=== PATIENT | female | born 1985 | race Caucasian/White ===

== ENCOUNTER 2017-06-22 11:43 | Emergency (ER) | payer BC ==
[2017-06-22] MEDS ORDERED: CLINDAMYCIN PHOSPHATE 150 MG/ML VIAL IM ONE (12:18)
--- NOTE | 2017-06-22 12:21 | ERNOTE ---
Integumentary HPI - Narrative Date of Service: 06/22/17 - General Presenting Symptoms: abscess Time Seen by Provider: 06/22/17 11:59 Source: patient Exam Limitations: no limitations - Immun/Allergies/Home Medications Immunizations: IMMUNIZATION HX Immunizations Up to Date Yes History of Influenza Vaccine Yes Hx Pneumococcal Vaccination No Allergies/Adverse Reactions: Allergies Allergy/AdvReac Type Severity Reaction Status Date / Time Cholinesterase Allergy Verified 06/22/17 11:57 Inhibitor(Carbamate) magnesium [Magnesium] Allergy Verified 06/22/17 11:57 procaine HCl [From Novocain] Allergy Verified 06/22/17 11:57 sulfamethoxazole Allergy Verified 06/22/17 11:57 [From Bactrim] trimethoprim [From Bactrim] Allergy Verified 06/22/17 11:57 Home Medications: HOME MEDICATIONS Clindamycin HCl [Cleocin HCl] 300 mg PO Q6H #40 capsule 06/22/17 [Last Taken Unknown] - History of Present Illness Narrative: Pt. comes in with abscess to her post L ear and to her anterior R knee for two days. Pt. denies any fevers, SOB, CP, NVD, but does state that there was bloody drainage from the abscess behind her L ear. 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 Pt. denies any prehospital treatment, alleviating, or aggravating factors. Review of Systems - Review of Systems Constitutional: Present: no symptoms reported. Absent: recent illness, fever, chills, weakness, fatigue EYE: Present: no symptoms reported ENT: Present: no symptoms reported Respiratory: Present: no symptoms reported. Absent: shortness of breath, cough , wheezing Cardiology: Present: no symptoms reported. Absent: chest pain, palpitations, edema Genitourinary: Present: no symptoms reported Musculoskeletal: Present: no symptoms reported. Absent: back pain, joint pain Skin: Present: See HPI, lesions Neurological: Present: no symptoms reported. Absent: headache, dizziness/light- headedness, numbness, tingling All Other Systems: All systems neg except as marked - Patient's Past Medical History Patient History - Medical: No pertinent hx Patient History - Cardiac/Respiratory: No pertinent hx Patient History - Cancer: No Hx of Cancer Patient History - Surgical Procedures: Cholecystectomy Patient History - Other: None LMP (females 10-50): unknown - Social History Living Situations: home Abuse History: No History of abuse Psych History: No pertinent hx Smoking Status: Never smoker Alcohol Use: none Drug Use: none - Immunizations Immunizations Up to Date: Yes Hx Pneumococcal Vaccination: No History of Influenza Vaccine: Yes Physical Exam - Physical Exam General Appearance: Present: wd/wn, alert, no apparent distress Head Exam: Present: no evidence of injury, other - 1cm fluid filled lesion anterior scalp posterior to ear Eye Exam: Normal inspection: bilateral, PERRL: bilateral, EOMI: bilateral Respiratory: Present: no respiratory distress, normal breath sounds, no accessory muscle use, chest nontender, lungs clear Cardiovascular/Chest: Present: regular rate, rhythm, no murmur, normal peripheral pulses Back Exam: Present: normal inspection Extremity Exam: Present: normal range of motion, no edema, other - edema and erythema R prox lower leg 3cm in diameter without fluctuant fluid Neurological Exam: Present: alert, oriented, normal mood/affect, no motor/ sensory deficits Skin Exam: Present: normal color, warm/dry. Absent: pallor, skin rash ED Progress - Vital Signs Patient's Vital Signs:: I have reviewed the patient's vital signs. Vital Signs: Vital Signs 06/22/17 11:53 Temperature 36.9 C Pulse Rate 90 Respiratory 16 Rate Blood Pressure 136/87 O2 Sat by Pulse 100 Oximetry - Progress/Reassessment Chief Complaint: Abscess Procedures Left Upper Anterior Lateral Head Anesthesia: 1% Lidocaine I & D Prep: betadine prep Blade Size: 16 ga needle Findings and Actions: purulent drainage small, probed/breakup loculation, cultures obtained Complications: Pt mira procedure well Departure Clinical Impression: Abscess or cellulitis of forehead - Departure Disposition: Home self-care Condition: Good Instructions: Abscess, [id number], Cellulitis, Adult, [id number], Form - Excuse from Work, School, or Physical Activity Additional Instructions: Please follow up with primary provider in 2-3 days. Referrals: Adolph Lugo MD [Primary Care Provider] - Prescriptions: Clindamycin HCl [Cleocin HCl] 300 mg PO Q6H #40 capsule
[2017-06-22 12:53] VITALS: BP 109/77
== END 2017-06-22 13:05 | disposition home or self-care (01) ==
LOC: ER 11:43
PROC: 0J903ZX Drainage of Scalp Subcutaneous Tissue and Fascia, Percutaneous Approach, Diagnostic (ICD-10-PCS; principal; 2017-06-22)
DX: L03.811 Cellulitis of head [any part, except face] (principal)

== ENCOUNTER 2017-07-23 21:11 | Emergency (ER) | payer SELFPAY ==
[2017-07-23 22:01] VITALS: BP 130/71
[2017-07-23] MEDS ORDERED: SULFAMETHOXAZOLE/TRIMETHOPRIM 1 TAB TABLET PO ONE (22:03)
[2017-07-23] MEDS ORDERED: SULFAMETHOXAZOLE/TRIMETHOPRIM 1 TAB TABLET ONE (22:07)
--- NOTE | 2017-07-23 22:11 | ERNOTE ---
Integumentary HPI - General Presenting Symptoms: rash Time Seen by Provider: 07/23/17 21:27 Source: patient Exam Limitations: no limitations - Immun/Allergies/Home Medications Immunizations: IMMUNIZATION HX Immunizations Up to Date Yes History of Influenza Vaccine Yes Hx Pneumococcal Vaccination No Allergies/Adverse Reactions: Allergies Allergy/AdvReac Type Severity Reaction Status Date / Time Cholinesterase Allergy Verified 06/22/17 11:57 Inhibitor(Carbamate) magnesium [Magnesium] Allergy Verified 06/22/17 11:57 procaine HCl [From Novocain] Allergy Verified 06/22/17 11:57 sulfamethoxazole Allergy Unverified 07/23/17 22:09 [From Bactrim] trimethoprim [From Bactrim] Allergy Unverified 07/23/17 22:09 Home Medications: HOME MEDICATIONS Clindamycin HCl [Cleocin HCl] 300 mg PO Q6H #40 capsule 06/22/17 [Last Taken Unknown] Rifampin [Rifadin] 300 mg PO BID #20 capsule 07/23/17 [Last Taken Unknown] Sulfamethoxazole/Trimethoprim [Bactrim Ds] 1 tab PO BID #20 tab 07/23/17 [Last Taken Unknown] - Pain Pain Score: 8 - History of Present Illness Narrative: Pt had an abscess in the right axilla approx 2 weeks ago she was placed on cleocin and did not finish the course. She began to have pain and swelling in the left axilla and started taking the cleocin again. The lesion in the left axilla has increased to the point of increased pain and swelling. Location: Reports: axillary Quality: Reports: painful Severity: severe Review of Systems - Review of Systems Constitutional: Absent: recent illness, fever EYE: Present: no symptoms reported ENT: Present: no symptoms reported Respiratory: Present: no symptoms reported Cardiology: Present: no symptoms reported Gastrointestinal/Abdominal: Present: nausea - at times due to pain Genitourinary: Present: no symptoms reported Musculoskeletal: Absent: joint pain, joint swelling Skin: Present: See HPI Neurological: Present: no symptoms reported Endocrine: Present: no symptoms reported Hematologic/Lymphatic: Present: no symptoms reported Psych: Present: no symptoms reported - Patient's Past Medical History Patient History - Medical: No pertinent hx Patient History - Cardiac/Respiratory: No pertinent hx Patient History - Cancer: No Hx of Cancer Patient History - Surgical Procedures: Cholecystectomy Patient History - Other: None - Social History Living Situations: home Abuse History: No History of abuse Psych History: No pertinent hx Smoking Status: Never smoker Alcohol Use: none Drug Use: none - Immunizations Immunizations Up to Date: Yes Hx Pneumococcal Vaccination: No History of Influenza Vaccine: Yes Physical Exam - Physical Exam General Appearance: Present: wd/wn, alert, mild distress Head Exam: Present: normal inspection, no evidence of injury Neck: Present: normal inspection, nontender. Absent: lymphadenopathy (L) Extremity Exam: Present: normal except - - axilla swelling and erythema, normal range of motion, no edema Neurological Exam: Present: alert, oriented, normal mood/affect, no motor/ sensory deficits Skin Exam: Present: other - 4 cm x 2 cm abscess, 2 cm raised taught and very tender in the left axilla ED Progress - Vital Signs Vital Signs: Vital Signs 07/23/17 21:14 Temperature 37.1 C Pulse Rate 100 Respiratory 16 Rate Blood Pressure 124/67 O2 Sat by Pulse 99 Oximetry - Progress/Reassessment Chief Complaint: Abscess Procedures Left Arm Date and Time: LEFT AXILLA ABSCESS INCISION AND DRAINAGE 07/23/17 21:50 Anesthesia: Lidocaine w/ Epi, Local I & D Prep: betadine prep, sterile drapes applied Blade Size: 15 Findings and Actions: purulent drainage large, probed/breakup loculation, cultures obtained, other - Cut elipse shaped opening in the skin to keep from closing Estimated blood loss (ml): 10 Complications: Pt mira procedure well Comments:: Instructed the patient to flush the cavity with water BID until healed. Given syringe and IV catheter tip to flush with. Departure Clinical Impression: Abscess of axilla, left - Departure Disposition: Home self-care Condition: Good Instructions: Community-Associated MRSA Additional Instructions: Flush the wound with clean water twice a day. See your regular doctor for follow up and possible referral Referrals: Adolph Lugo MD [Primary Care Provider] - Prescriptions: Rifampin [Rifadin] 300 mg PO BID #20 capsule Sulfamethoxazole/Trimethoprim [Bactrim Ds] 1 tab PO BID #20 tab
== END 2017-07-23 22:12 | disposition home or self-care (01) ==
LOC: ER 21:11
PROC: 0H9CXZZ Drainage of Left Upper Arm Skin, External Approach (ICD-10-PCS; principal; 2017-07-23)
DX: L02.412 Cutaneous abscess of left axilla (principal)